=== PATIENT | female | born 1955 | race American Indian/Alaskan Native ===

== ENCOUNTER 2021-04-19 10:00 | Day surgery (SDC) | payer OTHER ==
[~2021-04-19 10:00] MED LIST: SODIUM CHLORIDE 0.9% 1000 ML 1,000 ML IV SCH
--- NOTE | 2021-04-19 11:15 | Anesthesia Day of Surgery ---
Anesthesia Day of Surgery - Day of Surgery Patient Examined: Yes Patient H&P Reviewed: Yes Patient is NPO: Yes
--- NOTE | 2021-04-19 11:18 | Anesthesia Consultation ---
Anesthesia Consult and Med Hx Date of service: 04/19/21 - Airway Anesthetic Teeth Evaluation: Good ROM Head & Neck: Adequate Mental/Hyoid Distance: Adequate Mallampati Class: Class II Intubation Access Assessment: Good - Pre-Operative Health Status ASA Pre-Surgery Classification: ASA2 Proposed Anesthetic Plan: MAC - Pulmonary Hx Smoking: No Hx Respiratory Symptoms: No (+2FS) Hx Sleep Apnea: No - Gastrointestinal Hx Gastroesophageal Reflux Disease: No - Hematic Hx Sickle Cell Disease: No - Other Systems Hx Obesity: Yes
[2021-04-19] MEDS ORDERED: propofoL 200 MG/20 ML VIAL IV ONE ×2 (11:52)
--- NOTE | 2021-04-19 12:31 | Operative Report ---
DATE OF SURGERY: 04/19/2021 INDICATIONS: The patient is a 65-year-old -[place] female with a prior history of colon polyp. Colonoscopy was done as a repeat colonoscopy to assess for any recurrence of any polyps. Last colonoscopy was done a few years earlier by another aircraft de icer installer. DESCRIPTION OF PROCEDURE: Procedure was done after getting informed consent with MAC anesthesia. Initial rectal examination was unremarkable. The instrument was passed through the rectum onto the cecum, which was identified with ileocecal valve and appendiceal orifice. Visualization was fair to good. Cecum, ascending colon, transverse colon showed normal mucosa. There were a few minor diverticula noted in the left colon. In the rectum, there were a few polyps, possibly 2 that were small, possibly hyperplastic that were removed by cold biopsy with minimal bleeding and the rectum showed some minor internal hemorrhoid on the retroverted view. ASSESSMENT: Colon polyp screening, few small rectosigmoid polyps, possibly hyperplastic. Minor diverticula involving the left colon. Minor internal hemorrhoid. PLAN: To encourage the patient to take fiber supplements, have the patient avoid aspirin and aspirin-related products for the next few days and followup in the office in 1-2 weeks' time. Procedure was done in the GI lab with assistance of the GI lab team, which included the GI nurse, the technical training coordinator and with assistance of anesthesia. TID: [id number] RECEIPT: [id number] NATALIIA/THOMAS
[2021-04-19 13:29] VITALS: BP 139/71
--- NOTE | 2021-04-19 18:17 | Post Anesthesia Evaluation ---
- Post Anesthesia Evaluation Patient Participated: Yes Airway Patent: Yes Stable Respiratory Function: Yes Nausea/Vomiting: No Temp > 96.8F: Yes Pain Manageable: Yes Adequeate Hydration: Yes Anesthesia Complications: No Block Receding Appropriately: Not Applicable Patient on Ventilator: No
== END 2021-04-19 13:10 | disposition home or self-care (01) ==
LOC: GIO 10:00
DX: Z12.11 Encounter for screening for malignant neoplasm of colon (principal); K64.8 Other hemorrhoids; K62.89 Other specified diseases of anus and rectum; K63.89 Other specified diseases of intestine; K57.30 Diverticulosis of large intestine without perforation or abscess without bleeding; E66.9 Obesity, unspecified; Z68.34 Body mass index [BMI] 34.0-34.9, adult; Z79.899 Other long term (current) drug therapy
CPT/HCPCS: 45380; 88305; J2704; J7030; J7120; Q0162